=== PATIENT | female | born 1960 | race African-American/Black ===

== ENCOUNTER 2017-03-31 08:56 | Emergency (ER) | payer MEDICARE, MEDICAID ==
[~2017-03-31] VITALS: Ht 167.6 cm; Wt 93.2 kg
[~2017-03-31 08:56] MED LIST: HYDR-3138 PO; LISI1TAB3 PO; SIMV20TA3 PO
[2017-03-31] MEDS ORDERED: OXYcodone/APAP 5/325MG TABLET PO ONE (09:30)
[2017-03-31] MEDS ORDERED: KETOROLAC 30 MG/1 ML IM ONE (09:30)
[2017-03-31] MEDS ORDERED: OXYcodone/APAP 5/325MG TABLET ONE (09:31)
[2017-03-31] MEDS ORDERED: KETOROLAC 30 MG/1 ML ONE (09:31)
[2017-03-31 11:03] VITALS: BP 125/84
== END 2017-03-31 11:05 | disposition home or self-care (01) ==
LOC: ED 09:25
DX: M25.571 Pain in right ankle and joints of right foot (principal); I10 Essential (primary) hypertension; E78.5 Hyperlipidemia, unspecified
CPT/HCPCS: 36415; 73610; 84550; 85025; 96372; 99285; J1885

== ENCOUNTER 2017-12-22 19:15 | Emergency (ER) | payer MEDICARE, MEDICAID ==
[~2017-12-22 19:15] MED LIST changes: -HYDR-3138 PO; +HYDR-3237 PO
[2017-12-22] MEDS ORDERED: CHLO25TA PO (19:36)
[2017-12-22 19:45] LABS: BASOPHILS # (AUTO) 0.04 x10^3/uL (0-0.1); BASOPHILS % (AUTO) 0 % (0-1); EOSINOPHILS # (AUTO) 0.07 x10^3/uL (0-0.4); EOSINOPHILS % (AUTO) 1 % (1-7); LYMPHOCYTES # (AUTO) 2.04 x10^3/uL (1-3.4); LYMPHOCYTES % (AUTO) 19 % (22-44); MD NO; MEAN CORPUSCULAR HEMOGLOBIN 29.2 pg (27.0-34.8); MEAN CORPUSCULAR HGB CONC 33.4 g/dL (32.4-35.8); MEAN CORPUSCULAR VOLUME 87.2 fL (80-100); MEAN PLATELET VOLUME 7.9 fL (7.4-10.4); MONOCYTES # (AUTO) 0.73 x10^3/uL (0.2-0.8); MONOCYTES % (AUTO) 7 % (2-9); NEUTROPHILS # (AUTO) 8.09 x10^3/uL (1.8-6.8); NEUTROPHILS % (AUTO) 74 % (42-75); PLATELET COUNT 312 x10^3/uL (130-400); RED BLOOD COUNT 4.21 x10^6/uL (3.82-5.3); RED CELL DISTRIBUTION WIDTH 14.1 % (9.6-15.2)
[2017-12-22 19:59] LABS: ALANINE AMINOTRANSFERASE 20 U/L (12-78); ALBUMIN 3.5 g/dL (3.4-5.0); ANION GAP 10 mmol/L (5-15); CALCIUM 8.5 mg/dL (8.5-10.1); CHLORIDE 105 mmol/L (98-107); CREATININE 1.41 mg/dL (0.55-1.02)
[2017-12-22 20:03] LABS: ALKALINE PHOSPHATASE 77 U/L (45-117); BILIRUBIN,TOTAL 0.3 mg/dL (0.2-1.0); TOTAL PROTEIN 8.1 g/dL (6.4-8.2); TROPONIN I < 0.015 ng/mL (0.000-0.045)
[2017-12-22 20:19] LABS: CULTURE INDICATED? YES; MICROSCOPIC INDICATED
[2017-12-22 20:37] LABS: AMPHETAMINE SCREEN, URINE Negative (Negative); BARBITURATE SCREEN, URINE Negative (Negative); BENZODIAZEPINE SCREEN, URINE Negative (Negative); CANNABINOID SCREEN, URINE Negative (Negative); COCAINE SCREEN, URINE Negative (Negative); METHADONE SCREEN, URINE Negative (Negative); OPIATE SCREEN, URINE Negative (Negative)
[2017-12-22] MEDS ORDERED: ACETAMINOPHEN 325 MG TABLET ONE (20:44)
[2017-12-22] MEDS ORDERED: SODIUM CHLORIDE 0.9% 1,000ML IVBOLUS ONE (21:00)
[2017-12-22] MEDS ORDERED: ACETAMINOPHEN 325 MG TABLET PO ONE (21:00)
[2017-12-22] MEDS ORDERED: SODIUM CHLORIDE FLUSH 10ML SYR IVF ONE (21:00)
[2017-12-22 21:55] VITALS: BP 115/56
== END 2017-12-22 22:31 | disposition home or self-care (01) ==
LOC: ED 20:13
DX: R41.82 Altered mental status, unspecified (principal); R42 Dizziness and giddiness; R55 Syncope and collapse; I10 Essential (primary) hypertension; E78.5 Hyperlipidemia, unspecified
CPT/HCPCS: 36415; 70450; 71045; 72125; 80053; 80307; 81001; 84484; 85025; 87086; 93005; 96360; 99285; J7030

== ENCOUNTER 2018-10-31 09:09 | Emergency (ER) | payer MEDICARE, MEDICAID ==
[~2018-10-31] VITALS: Ht 167.6 cm; Wt 96.7 kg
[~2018-10-31 09:09] MED LIST changes: +CHLO25TA PO
[2018-10-31 09:12] VITALS: BP 94/63
--- NOTE | 2018-10-31 09:25 | NUR ---
PT TO ROOM FROM LOBBY IN A WHEELCHAIR.
--- NOTE | 2018-10-31 09:33 | NUR ---
TASK RN: DR GILLIAM AT BEDSIDE, POC DISCUSSED AND QUESTIONS ANSWERED. CALL LIGHT W/I REACH
--- NOTE | 2018-10-31 10:17 | NUR ---
TASK RN:l Patient/Caregiver given discharge instructions and they have confirmed that they understand the instructions. Patient ambulatory with use of cane. Ice Pack provided.
== END 2018-10-31 10:33 | disposition home or self-care (01) ==
LOC: ED 10:22
DX: M79.672 Pain in left foot (principal); J00 Acute nasopharyngitis [common cold]; E78.5 Hyperlipidemia, unspecified; I10 Essential (primary) hypertension; G89.29 Other chronic pain; M54.9 Dorsalgia, unspecified; M54.2 Cervicalgia
CPT/HCPCS: 99283

== ENCOUNTER 2019-02-25 10:32 | Emergency (ER) | payer MEDICARE, MEDICAID ==
[~2019-02-25] VITALS: Ht 167.6 cm; Wt 98.1 kg
[2019-02-25 10:36] VITALS: BP 134/91
[2019-02-25] MEDS ORDERED: LISI-170 PO (10:58)
[2019-02-25] MEDS ORDERED: METF500T17 PO (10:59)
--- NOTE | 2019-02-25 11:08 | NUR ---
Patient/Caregiver given discharge instructions and they have confirmed that they understand the instructions. Patient ambulatory with steady gait.
== END 2019-02-25 11:10 | disposition home or self-care (01) ==
LOC: ED 11:04
DX: E11.9 Type 2 diabetes mellitus without complications (principal); Z00.00 Encounter for general adult medical examination without abnormal findings; E78.5 Hyperlipidemia, unspecified; I10 Essential (primary) hypertension
CPT/HCPCS: 82962; 99281; 99282

== ENCOUNTER 2021-02-11 06:54 | Emergency (ER) | payer MEDICARE, MEDICAID ==
[~2021-02-11] VITALS: Ht 167.6 cm; Wt 93.5 kg
[~2021-02-11 06:54] MED LIST changes: +"\\\"WATER PILL\\\"" PO; +ASCO500T9 PO; +LISI-170 PO; +LISI1TAB23 PO; -LISI1TAB3 PO; +METF500T17 PO; +SIMV20TA19 PO; -SIMV20TA3 PO; +ZINC220C7 PO
--- NOTE | 2021-02-11 07:20 | NUR ---
PT C/O RIGHT WRIST PAIN AND BUMP. PAIN 9/10 WHEN TOUCHED. PT STATES SHE BUMPED IT LAST YEAR, BUT THE BUMP FORMED RECENTLY. PT IN HOSPITAL IN AUGUST FOR COVID AND PNEUMONIA.
[2021-02-11 07:38] VITALS: BP 116/74
--- NOTE | 2021-02-11 08:10 | NUR ---
PT REC'VD INSTRUCTIONS AND EDUCATION. PT HAD NO FURTHER QUESTIONS. PT AMBULATED TO DC AREA, STEADY GAIT.
== END 2021-02-11 08:23 | disposition home or self-care (01) ==
LOC: ED 08:12
DX: D17.9 Benign lipomatous neoplasm, unspecified (principal); I10 Essential (primary) hypertension; E78.5 Hyperlipidemia, unspecified
CPT/HCPCS: 99281